=== PATIENT | female | born 1980 | race Caucasian/White ===

== ENCOUNTER 2016-06-19 11:00 | Emergency (ER) | payer SELFPAY ==
[2016-06-19 11:05] VITALS: BP 143/103; BMI 45.6
--- NOTE | 2016-06-19 11:31 | DR.GENAD ---
HPI - PCP Primary Care Physician: nfd - HPI Comment HPI Comment: GETTING WORSE. ON BUTTOCKS. NO FEVER. - Complaint/Symptoms Chief Complaint Doctors Comments: SPIDER BITE TIMES 2 DAYS Chief Complaint:: patient stated she thinks a spider bite her on her inner buttcheck on the left side. - Nurses notes reviewed Nurses Notes Review: Yes - Source History Provided: Patient - Mode of Arrival Mode of Arrival: Ambulatory - Timing Onset of Chief Complaint: 06/17/16 Came on: Suddenly - Duration Duration: Constant Duration: Days - Severity Severity: Moderate PMH - PMH Past Medical History: Yes Past Medical History: Anxiety, Depression, GERD, Hypertension, Hypothyroidism Past Surgical History: Yes Surgical History: DIRECTOR AMBULATORY Surgery, Ortho Surgery - Family History History of Family Medical Conditions: Yes Family Medical History: [place], Coronary Artery Disease, Hypertension - Social History Does patient currently use any type of tobacco product: No Have you used tobacco products in the last 12 months: No Type of Tobacco Use: None Does any household member use tobacco: No Alcohol Use: None Do you use any recreational Drugs:: No Lives With: Family Lives Where: Home - infectious screening In the last 2 months have you had wt loss of >10#?: NO Have you had fever, night sweats or hemotysis?: No Have you traveled outside the country in the last 6 months?: No Isolation: Standard ROS - Review of Systems Constitutional: No Symptoms Reported Eyes: No Symptoms Reported ENTM: No Symptoms Reported Respiratoy: No Symptoms Reported Cardiovascular: No Symptoms Reported Gastrointestinal/Abdominal: No Symptoms Reported Genitourinary: Other (CELLULITIS LEFT BUTTOCKS) Neurological: No Symptoms Reported Musculoskeletal: No Symptoms Reported Integumentary: Other (CELLULITIS LT BUTTOCKS) Hematologic/Lymphatic: No Symptoms Reported Endocrine: No Symptoms Reported All Other Systems: Reviewed and Negative PE - Vital Signs Vitals: Temperature 98.9 F Pulse Rate 120 Respiratory Rate 16 Blood Pressure 143/103 O2 Sat by Pulse Oximetry 100 - General Limitations: No Limitations General Appearance: Alert - Head Head Exam: Normal Inspection - Eyes Eye exam: Normal Appearance - ENT ENT Exam: Normal External Ear Exam External Ear Exam: Normal External Inspection TM/Canal Exam: Bilateral Normal Nose Exam: Normal Nose Exam Mouth Exam: Normal Inspection Throat Exam: Normal Inspection - Neck Neck Exam: Normal Inspection - Chest Chest Inspection: Symmetric Chest Wall Rise - Respiratory Respiratory Exam: Normal Lung Sounds Bilat Respiratory Exam: Bilateral Clear to Auscultation - Cardiovascular Cardiovascular Exam: Regular Rate, Normal Rhythm, Normal Heart Sounds - Abdominal Exam Abdominal Exam: Other (CELLULITIS LEFT BUTTOCKS) - Extremities Extremities Exam: Normal Inspection - Back Back Exam: Normal Inspection - Neurologic Neurological Exam: Alert, Oriented X3 - Psychiatric Psychiatric Exam: Normal Affect, Normal Mood - Skin Skin Exam: Erythema MDM - Additional Information Additional Information Obtained From: Family - Differential Diagnosis Differential Diagnosis: ABSCESS RT BUTTOCKS, CELLULITIS RT BUTTOCKS Course - Treatment Treatment: SEE ORDERS - Education/Counseling Education/Counseling: Patient, Education Educated On: Diagnosis, Needs for Follow Up - Diagnosis Discharge Problem: Cellulitis - Discharge Plan Disposition: HOME, SELF-CARE Condition: Stable Prescriptions: Acetaminophen W/ Codeine [Tylenol/Codeine #3 300-30 mg] 1 tab PO Q4-6H PRN #15 tab PRN Reason: Pain Ibuprofen [Motrin Tab 800 mg] 800 mg PO Q8H PRN #20 tab PRN Reason: Pain/Inflammation Sulfamethoxazole-Trimethoprim [BACTRIM DS TAB 800/160 MG *] 1 tab PO BID #20 tab - Follow ups/Referrals Follow ups/Referrals: NFD,None [Primary Care Provider] - 3 days - Instructions Instructions: Cellulitis Additional Instructions: RETURN TO ES IF WORSE.
== END 2016-06-19 11:41 | disposition home or self-care (01) ==
LOC: ER 11:08
DX: L03.317 Cellulitis of buttock (principal); W57.XXXA Bitten or stung by nonvenomous insect and other nonvenomous arthropods, initial encounter
CPT/HCPCS: 99281; 99282

== ENCOUNTER 2016-09-23 03:22 | Emergency (ER) | payer SELFPAY ==
[2016-09-23 03:28] VITALS: BP 172/94; BMI 49.1
[2016-09-23 03:51] LABS: BASOPHILS # (AUTO) 0.1 X10^3/uL (0.0-0.1); BASOPHILS % (AUTO) 0.8 % (0.2-1.0); EOSINOPHILS # (AUTO) 0.1 x10^3/uL (0.0-0.2); EOSINOPHILS % (AUTO) 1.5 % (0.9-2.9); HEMATOCRIT 40.7 % (36.0-47.0); HEMOGLOBIN 13.5 g/dL (12.0-16.0); LYMPHOCYTES % (AUTO) 39.4 % (21.0-51.0); MEAN CORPUSCULAR HGB CONC 33.1 g/dL (33.0-35.0); MEAN CORPUSCULAR VOLUME 90.6 fL (80.0-100.0); MEAN PLATELET VOLUME 8.9 fL (7.4-11.0); MONOCYTES # (AUTO) 0.7 x10^3/uL (0.3-0.8); MONOCYTES % (AUTO) 9.1 % (0.0-13.0); NEUTROPHILS # (AUTO) 3.8 x10^3/uL (2.2-4.8); NEUTROPHILS % (AUTO) 49.2 % (42.0-75.0); PLATELET COUNT 209 X10^3/uL (150.0-450.0); RED BLOOD COUNT 4.49 X10^6/uL (3.5-5.4); RED CELL DISTRIBUTION WIDTH 13.6 % (11.6-16.5); WHITE BLOOD COUNT 7.6 X10^3/uL (3.6-10.0)
[2016-09-23 03:53] LABS: CHLORIDE 99 mmol/L (98-107); SODIUM 133 mmol/L (136-145)
[2016-09-23] MEDS ORDERED: NS 1000 ML 1,000 ML IV ONE (03:53)
[2016-09-23] MEDS ORDERED: BENTYL I.M. INJ 10 MG IM ONE ×2 (03:53→03:59)
[2016-09-23] MEDS ORDERED: ZOFRAN INJ 4 MG VIAL IVP ONE (03:53)
--- NOTE | 2016-09-23 03:55 | ED.ABDFE ---
HPI - Time seen Time seen: 03:30 - PCP Primary Care Physician: MOON LAWS - Complaint Chief Complaint Doctors Comments: Bianca is severe, 10/10, context sitting, onset this AM less than two hours ago. Denies constipation or dysuria. 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, Ortho Surgery - Family History History of Family Medical Conditions: Yes Family Medical History: [place], Coronary Artery Disease, Hypertension - Social History Does patient currently use any type of tobacco product: No Have you used tobacco products in the last 12 months: No Type of Tobacco Use: None Alcohol Use: None Do you use any recreational Drugs:: No Lives With: Spouse Lives Where: Home - infectious screening Have you traveled outside the country in the last 6 months?: No Isolation: Standard ROS - Review of Systems Constitutional: negative: Diaphoresis Eyes: No Symptoms Reported ENTM: No Symptoms Reported Respiratoy: No Symptoms Reported Cardiovascular: No Symptoms Reported Gastrointestinal/Abdominal: No Symptoms Reported Genitourinary: No Symptoms Reported Neurological: No Symptoms Reported Musculoskeletal: No Symptoms Reported Integumentary: No Symptoms Reported Hematologic/Lymphatic: No Symptoms Reported Endocrine: No Symptoms Reported Psychiatric: No Symptoms Reported All Other Systems: Reviewed and Negative PE - Vital Signs Vitals: Temperature 97.8 F Pulse Rate 79 Respiratory Rate 20 Blood Pressure 172/94 O2 Sat by Pulse Oximetry 97 - General Limitations: No Limitations General Appearance: Alert, Anxious - Head Head Exam: Normal Inspection, Atraumatic - Eyes Eye exam: Normal Appearance, PERRL, EOMI - ENT ENT Exam: Normal Exam - Neck Neck Exam: Normal Inspection, Full ROM - Respiratory Respiratory Exam: Normal Lung Sounds Bilat Respiratory Exam: Bilateral Clear to Auscultation - Cardiovascular Cardiovascular Exam: Regular Rate, Normal Rhythm - Abdominal Exam Abdominal Exam: Tenderness Abdominal Tenderness: LUQ - Rectal Rectal Exam: Deferred - Back Back Exam: Normal Inspection, (L) CVA Tenderness - Extremeties Extremities Exam: Normal Inspection - External Exam: Female: Deferred : Speculum Exam (Female): Deferred : Bimanual Exam (female): Deferred - Neurologic Neurological Exam: Alert, Oriented X3, CN II-XII Intact - Psychiatric Psychiatric Exam: Normal Affect, Normal Mood - Skin Skin Exam: Warm, Dry, Intact Course - Treatment Treatment: Ketoralac, morphine, IVF - Reevaluation 1st: Improved ROR - Labs Reviewed Result Diagrams: 09/23/16 03:42 09/23/16 03:42 Laboratory: WBC 7.6 X10^3/uL (3.6-10.0) 09/23/16 03:42 RBC 4.49 X10^6/uL (3.5-5.4) 09/23/16 03:42 Hgb 13.5 g/dL (12.0-16.0) 09/23/16 03:42 Hct 40.7 % (36.0-47.0) 09/23/16 03:42 MCV 90.6 fL (80.0-100.0) 09/23/16 03:42 MCH 30.0 pg (27.0-34.0) 09/23/16 03:42 MCHC 33.1 g/dL (33.0-35.0) 09/23/16 03:42 RDW 13.6 % (11.6-16.5) 09/23/16 03:42 Plt Count 209 X10^3/uL (150.0-450.0) 09/23/16 03:42 MPV 8.9 fL (7.4-11.0) 09/23/16 03:42 Neut % 49.2 % (42.0-75.0) 09/23/16 03:42 Lymph % 39.4 % (21.0-51.0) 09/23/16 03:42 Banks % 9.1 % (0.0-13.0) 09/23/16 03:42 Eos % 1.5 % (0.9-2.9) 09/23/16 03:42 Baso % 0.8 % (0.2-1.0) 09/23/16 03:42 Neut # 3.8 x10^3/uL (2.2-4.8) 09/23/16 03:42 Lymph # 3.0 X10^3/uL (1.3-2.9) H 09/23/16 03:42 Banks # 0.7 x10^3/uL (0.3-0.8) 09/23/16 03:42 Eos # 0.1 x10^3/uL (0.0-0.2) 09/23/16 03:42 Baso # 0.1 X10^3/uL (0.0-0.1) 09/23/16 03:42 Absolute Nucleated RBC 0.0 /100WBC 09/23/16 03:42 Sodium 133 mmol/L (136-145) L 09/23/16 03:42 Corrected Sodium 139 mmol/L (136-145) 09/23/16 03:42 Potassium 4.3 mmol/L (3.5-5.1) 09/23/16 03:42 Chloride 99 mmol/L (98-107) 09/23/16 03:42 Carbon Dioxide 28.7 mmol/L (21-32) 09/23/16 03:42 BUN 21 mg/dL (7-18) H 09/23/16 03:42 Creatinine 0.94 mg/dL (0.55-1.02) 09/23/16 03:42 Est GFR (MDRD) Af Amer > 60 (>60) 09/23/16 03:42 Est GFR (MDRD) Non-Af > 60 (>60) 09/23/16 03:42 Glucose 331 mg/dL (65-99) H 09/23/16 03:42 Calcium 8.8 mg/dL (8.5-10.1) 09/23/16 03:42 Corrected Calcium TNP 09/23/16 03:42 Total Bilirubin 0.20 mg/dL (0.2-1.0) 09/23/16 03:42 AST 34 Units/L (15-37) 09/23/16 03:42 ALT 46 Units/L (12-78) 09/23/16 03:42 Alkaline Phosphatase 93 Units/L (46-116) 09/23/16 03:42 C-Reactive Protein 14.20 mg/L (0-3.0) H 09/23/16 03:42 Total Protein 7.4 g/dL (6.4-8.2) 09/23/16 03:42 Albumin 3.5 g/dL (3.4-5.0) 09/23/16 03:42 Globulin 3.9 g/dL (2.5-4.5) 09/23/16 03:42 Albumin/Globulin Ratio 0.9 Ratio (1.1-2.1) L 09/23/16 03:42 Specimen Type Clean catch urine 09/23/16 06:00 Urine Color Yellow (YELLOW) 09/23/16 06:00 Urine Appearance Clear (CLEAR) 09/23/16 06:00 Urine pH 6.0 (5.0 - 8.0) 09/23/16 06:00 Ur Specific [place] 1.015 (1.000-1.030) 09/23/16 06:00 Urine Protein 1+ (NEGATIVE) 09/23/16 06:00 Urine Glucose (UA) 4+ (NEGATIVE) 09/23/16 06:00 Urine Ketones Negative (NEGATIVE) 09/23/16 06:00 Urine Occult Blood 5+ (NEGATIVE) 09/23/16 06:00 Urine Nitrite Positive (NEGATIVE) 09/23/16 06:00 Urine Bilirubin Negative (NEGATIVE) 09/23/16 06:00 Urine Urobilinogen Normal (NORMAL) 09/23/16 06:00 Ur Leukocyte Esterase 1+ (NEGATIVE) 09/23/16 06:00 Urine RBC 20 - 30 /HPF (NEGATIVE) 09/23/16 06:00 Urine WBC 03 - 06 /HPF (NEGATIVE) 09/23/16 06:00 Ur Squamous Epith Cells Moderate /HPF (NEGATIVE) 09/23/16 06:00 Amorphous Sediment Trace /HPF (NEGATIVE) 09/23/16 06:00 Urine Bacteria 2+ /HPF (NEGATIVE) 09/23/16 06:00 Ur Culture Indicated? No/not indicated 09/23/16 06:00 H. pylori IgG Antibody Negative (NEGATIVE) 09/23/16 03:42 - XRAY XRAY Interpreted by: Radiologist (KUB: negative; CT: abd/pelv with:Diffuse hepatic parenchymal hypodensity compatible with hepatic steatosis. Otherwise uniform attenuation of the hepatic parenchyma without evidence of focal lesions.Unremarkable gallbladder, spleen, pancreas, bilateral adrenal glands. Mild left sided hydroureteronephrosis demonstrated. At the left UVJ there appears to be a small calculus. Mild left sided hydroureteronephrosis demonstrated. At the left UVJ there appears to be a small calculus. This calculus measures approximately 5x4mm. Normal caliber small bowel and colonic looops with no evidence of wall thickening. No evidence of free fluid or adenopathy in abdomen. Impression: Left UVJ a 5x4mm calculus causing mild left sided hydroureteronephrosis.) - Diagnosis Discharge Problem: hydroureteronephrosis UTI (urinary tract infection) Qualifiers: Urinary tract infection type: acute cystitis Hematuria presence: with hematuria Qualified Code(s): N30.01 - Acute cystitis with hematuria - Discharge Plan Condition: Stable - Follow ups/Referrals Follow ups/Referrals: MOON LAWS [Primary Care Provider] - 3 days - Instructions
[2016-09-23] MEDS ORDERED: NS 1000 ML 1,000 ML ONE (03:58)
[2016-09-23] MEDS ORDERED: ZOFRAN INJ 4 MG VIAL ONE (03:59)
[2016-09-23 04:02] LABS: ALANINE AMINOTRANSFERASE 46 Units/L (12-78); ALBUMIN 3.5 g/dL (3.4-5.0); ALKALINE PHOSPHATASE 93 Units/L (46-116); ASPARTATE AMINO TRANSFERASE 34 Units/L (15-37); BLOOD UREA NITROGEN 21 mg/dL (7-18); CALCIUM 8.8 mg/dL (8.5-10.1); CARBON DIOXIDE 28.7 mmol/L (21-32); COR NA(FOR HYPERGLY) 139 mmol/L (136-145); CREATININE 0.94 mg/dL (0.55-1.02); GLUCOSE 331 mg/dL (65-99); TOTAL PROTEIN 7.4 g/dL (6.4-8.2); eGFR BLACK RACES > 60 (>60); eGFR NON BLACK RACES > 60 (>60)
[2016-09-23] MEDS ORDERED: MORPHINE SULFATE INJ 4 MG IVP ONE ×2 (05:04→06:07)
[2016-09-23] MEDS ORDERED: MORPHINE SULFATE INJ 4 MG ONE ×2 (05:05→07:25)
--- NOTE | 2016-09-23 05:11 | RAD ---
EXAM: Abdomen x-ray INDICATION: Abdominal pain COMPARISION: No priors TECHNIQUE: AP view, single view FINDINGS: The bowel loops are nonobstructed. No abnormal mass or calcification is identified. The regional ske leton is intact. IMPRESSION: Normal single view abdominal x-ray examination Reported By:
[2016-09-23] MEDS ORDERED: NS 100 ML IV 100 ML IV ONE (05:39)
[2016-09-23 06:21] LABS: BILIRUBIN,URINE NEGATIVE (NEGATIVE); BLOOD/HEMOGLOBIN,URINE 5+ (NEGATIVE); GLUCOSE, URINE 4+ (NEGATIVE); KETONES,URINE NEGATIVE (NEGATIVE); LEUKOCYTE ESTERASE ,URINE 1+ (NEGATIVE); NITRITES,URINE POSITIVE (NEGATIVE); PROTEIN,URINE 1+ (NEGATIVE); UROBILINOGEN,URINE NORMAL (NORMAL)
[2016-09-23 06:35] LABS: APPEARANCE,URINE CLEAR (CLEAR); COLOR,URINE YELLOW (YELLOW)
[2016-09-23 07:06] LABS: RBC,URINE 20 - 30 /HPF (NEGATIVE); SQUAMOUS EPITHELIAL CELL,UR MODERATE /HPF (NEGATIVE)
[2016-09-23 07:07] LABS: AMORPHOUS SEDIMENT,UR TRACE /HPF (NEGATIVE); BACTERIA,URINE 2+ /HPF (NEGATIVE)
--- NOTE | 2016-09-23 08:08 | CT ---
CT ABDOMEN PELVIS WITH CONTRAST CLINICAL HISTORY: Sharp left lower quadrant abdominal pain. TECHNIQUE: Axial images of the abdomen pelvis were obtained with administration of intravenous contr ast material. COMPARISON: None FINDINGS: Included lung bases are grossly unremarkable. CT ABDOMEN: Diffuse hepatic parenchymal hypodensity compatible with hepatic steatosis. Otherwise uniform attenua tion of the hepatic parenchyma without evidence of focal lesions. Unremarkable gallbladder, spleen, pancreas, bilateral adrenal glands. Mild left-sided hydroureteronephrosis demonstrated. At the left UVJ there appears to be a small calc ulus. This calculus measures approximately 5 x 4 millimeters. Normal caliber small bowel and colonic loops with no evidence of wall thickening. No evidence of free fluid or adenopathy in the abdomen. CT PELVIS: Left UVJ 5 x 4 millimeter calculus. Otherwise unremarkable urinary bladder. No free pelvic fluid or pelvic adenopathy. Grossly unremarkable uterus and adnexal structures. Osseous structures demonstrate no suspicious sclerotic or lytic lesions. IMPRESSION: 5 x 4 millimeters left UVJ calculus causing mild left-sided hydroureteronephrosis. Remainder of the exam negative for acute process Reported By:
[2016-09-23] MEDS ORDERED: TORADOL 30 MG VIAL IVP ONE (08:12)
[2016-09-23] MEDS ORDERED: TORADOL 15 MG VIAL ONE (08:14)
== END 2016-09-23 08:35 | disposition home or self-care (01) ==
LOC: ER 03:22
DX: N13.30 Unspecified hydronephrosis (principal); N30.01 Acute cystitis with hematuria
CPT/HCPCS: 36415; 74000; 74177; 80053; 81001; 85025; 86140; 86677; 96365; 96372; 96374; 96375; 99283; A4222; J0500; J2270; J2405

== ENCOUNTER 2017-06-30 14:45 | Emergency (ER) | payer OTHER ==
[2017-06-30 14:56] VITALS: BP 148/78; BMI 44.3
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
[2017-06-30] MEDS ORDERED: NORFLEX INJ IM ONE (15:38)
[2017-06-30] MEDS ORDERED: TORADOL 60 MG VIAL IM ONE (15:38)
[2017-06-30] MEDS ORDERED: TORADOL 60 MG VIAL ONE (15:41)
[2017-06-30] MEDS ORDERED: NORFLEX INJ ONE (15:41)
--- NOTE | 2017-06-30 16:21 | RAD ---
Examination: Thoracic spine, AP and lateral views History: Trauma Findings: No definite fracture or vertebral deformity or subluxation. Small marginal osteophytes at l ower thoracic disc levels. Pedicles and paraspinal soft tissues intact. Impression: No acute thoracic spine injury identified. Reported By:
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
== END 2017-06-30 17:41 | disposition home or self-care (01) ==
LOC: ER 15:02
DX: S29.019A Strain of muscle and tendon of unspecified wall of thorax, initial encounter (principal); S39.012A Strain of muscle, fascia and tendon of lower back, initial encounter; V87.7XXA Person injured in collision between other specified motor vehicles (traffic), initial encounter
CPT/HCPCS: 72072; 72110; 96372; 99282; 99283; J1885; J2360